=== PATIENT | male | born 1985 ===

== ENCOUNTER 2022-08-09 13:02 | Emergency (ER) | payer SELFPAY ==
[~2022-08-09] VITALS: Ht 167.6 cm; Wt 82.3 kg
[2022-08-09 14:22] LABS: CHLORIDE 104 mEq/L (98-107)
[2022-08-09 14:24] LABS: BASOPHILS % 0.7 % (0.0-2.0); EOSINOPHILS % 1.6 % (0.0-5.0); HEMATOCRIT. 39.5 % (42.0-52.0); HEMOGLOBIN. 13.2 g/dL (14.0-18.0); LYMPHOCYTES % 27.7 % (20.0-50.0); MEAN CORPUSCULAR HEMOGLOBIN 29.7 pg (28.0-32.0); MEAN PLATELET VOLUME 7.7 fl (7.4-10.4); MONOCYTES % 4.8 % (2.0-8.0); NEUTROPHILS % 65.2 % (40.0-76.0); PLATELET 323 x1000/uL (130-400); RED BLOOD CELL COUNT 4.44 mill/uL (4.7-6.1)
[2022-08-09 14:33] LABS: INR 0.9; PROTHROMBIN TIME 10.2 sec (9.6-11.0)
[2022-08-09] MEDS ORDERED: SODIUM CHLORIDE 0.9% 1,000 ML IV SCH (15:15)
[2022-08-09] MEDS ORDERED: KETOROLAC 15MG/ML VIAL IV SCH (15:15)
[2022-08-09 15:57] LABS: CLARITY URINE CLEAR (CLEAR); COLOR URINE YELLOW (YELLOW); KETONES URINE TRACE (NEGATIVE); LEUKOCYTE ESTERASE URINE NEGATIVE (NEGATIVE); NITRITE URINE NEGATIVE (NEGATIVE); OCCULT BLOOD URINE NEGATIVE (NEGATIVE); PROTEIN URINE NEGATIVE (NEGATIVE); SPECIFIC GRAVITY URINE 1.034 (1.005-1.030)
[2022-08-09 16:07] LABS: *AMPHETAMINES SCREEN URINE NEGATIVE (NEGATIVE); *BARBITURATES SCREEN URINE NEGATIVE (NEGATIVE); *BENZODIAZEPINES SCREEN URINE NEGATIVE (NEGATIVE); *COCAINE SCREEN URINE NEGATIVE (NEGATIVE); CANNABINOID URINE SCREEN NEGATIVE (NEGATIVE); METHADONE URINE SCREEN PRESUMTIVE POSITIVE (NEGATIVE); OPIATES URINE SCREEN NEGATIVE (NEGATIVE); PHENCYCLIDINE URINE SCREEN NEGATIVE (NEGATIVE)
[2022-08-09 17:12] LABS: CREATINE KINASE 133 IU/L (39-308); ETHANOL BLOOD < 10 mg/dL
[2022-08-09] MEDS ORDERED: IOHEXOL-350 100 ML BOTTLE ONE (18:34)
[2022-08-09] MEDS ORDERED: ALBU6.7H15 INH (18:59)
[2022-08-09] MEDS ORDERED: IBUP-2029 MT (18:59)
[2022-08-09] MEDS ORDERED: BACL-141 MT (21:07)
[2022-08-09 21:17] VITALS: BP 130/86
== END 2022-08-10 21:16 | disposition home or self-care (01) ==
LOC: ER 08-10 12:29
DX: R07.89 Other chest pain (principal); I10 Essential (primary) hypertension; Z00.00 Encounter for general adult medical examination without abnormal findings
CPT/HCPCS: 36415; 71045; 71275; 80053; 80305; 80320; 81003; 82550; 83605; 83880; 84484; 85025; 85379; 85610; 87040; 93005; 93970; 99285; J1885; Q9967; Z7610; G0480